=== PATIENT | female | born 1975 | race Caucasian/White ===

== ENCOUNTER → 2018-03-15 | Outpatient (REF) ==
[~2018-03-15] MED LIST: AMOX500T10 PO; LEVO-3 PO; LEVO137T23 PO; LEVO150T78 PO
[2018-03-15 13:47] LABS: LDL CHOLESTEROL 100 mg/dl
== END ==
DX: Z02.9 Encounter for administrative examinations, unspecified (principal)

== ENCOUNTER → 2019-01-23 | Outpatient (REF) ==
[2019-01-23 18:38] LABS: LDL CHOLESTEROL 93 mg/dl
== END ==
DX: Z02.9 Encounter for administrative examinations, unspecified (principal)

== ENCOUNTER → 2019-01-28 | Outpatient (CLI) | payer OTHER ==
[~2019-01-28] MED LIST changes: +OMEP40CA48 PO
--- NOTE | 2019-01-28 14:45 | RADIOLOGY IMAGING REPORT ---
FACILITY: [facility] PATIENT NAME: Jana Bashir : 1975 MR: [id number] V: [id number] EXAM DATE: ORDERING PHYSICIAN: YOLIS SNIDER TECHNOLOGIST: Location: [facility] [place] Patient: Jana Bashir : 1975 Visit/Account:[id number] Date of Sevice: 01/28/2019 THYROID HISTORY: enlarged thryoid - hoarness COMPARISON: None. FINDINGS: SIZE: Normal. Right lobe: 4.35 x 0.87 x 1.39 cm Left lobe: 3.62 x 1.06 x 1.43 cm Isthmus: 1.9 mm PARENCHYMA: Homogeneous. NODULES: Right lobe: * In the mid right lobe there is a 1.1 x 0.6 x 0.6 cm slightly heterogeneous lobular solid mass. * In the inferior right lobe there is a well-circumscribed homogeneous 5 mm solid mass Left lobe: * In the superior pole there is a 4 mm cystic nodule * In the inferior pole there is a complex 1.2 x 0.6 x 0.8 cm nodule Isthmus: * None discrete. VASCULARITY: Within normal limits. ADDITIONAL FINDINGS: None. IMPRESSION: There is a 1.1 cm heterogeneous nodule in the mid right lobe for which ultrasound-guided fine-needle aspiration is recommended In the inferior pole on the left there is a complex 1.2 cm nodule for which ultrasound-guided fine-ne edle aspiration is recommended REFERENCE: 2015 [place] [employer] Management Guidelines for Adult Patients with Thyroid Nodules and D ifferentiated Thyroid Cancer: The [place] [employer] Guidelines Task Force on Thyroid Nodul es and Differentiated Thyroid Cancer. SONOGRAPHIC PATTERNS: * Benign: Purely cystic nodules (no solid component); estimated risk of malignancy <1 percent; no bi opsy recommended. * Very Low Suspicion: Spongiform or partially cystic nodules without any of the sonographic features described in low, intermediate, or high suspicion patterns; estimated risk of malignancy <3 percent; consider FNA at > 2 cm (Observation without FNA is also a reasonable option). * Low Suspicion: Isoechoic or hyperechoic solid nodule, or partially cystic nodule with eccentric so lid areas, without microcalcification, irregular margin or ETE (extra-thyroidal extension), or taller than wide shape; estimated risk of malignancy 5-10 percent; recommend FNA at >1.5 cm. * Intermediate Suspicion: Hypoechoic solid nodule with smooth margins without microcalcifications, E TE (extra-thyroidal extension), or taller than wide shape; estimated risk of malignancy 10-20 percent ; recommend FNA at > 1 cm. * High Suspicion: Solid hypoechoic nodule or solid hypoechoic component of a partially cystic nodule with one or more of the following features: irregular margins (infiltrative, microlobulated), microc alcifications, taller than wide shape, rim calcifications with small extrusive soft tissue component, evidence of ETE (extra-thyroidal extension); estimated risk of malignancy >70-90 percent; recommend FNA at > 1 cm. NOTES: * Although a sonographically suspicious subcentimeter thyroid nodule without evidence of extrathyroi mariana extension or sonographically suspicious lymph nodes may be observed with close sonographic follow -up rather than pursuing immediate FNA, patient age and preference may modify decision-making. A > 50% interval increase in nodule volume and/or development of new suspicious sonographic features are felt to be a valid reasons for potential re-aspiration of a nodule previously shown to have benig n FNA cytology. Report Dictated By: Jessie Harden MD at 01/28/2019 2:38 PM Report E-Signed By: Jessie Harden MD at 01/28/2019 2:41 PM WSN:[email or web address]
== END ==
LOC: RAD 11:28
PROVIDERS: ATTEND Nurse Practitioner Family
DX: E04.2 Nontoxic multinodular goiter (principal)
CPT/HCPCS: 76536

== ENCOUNTER → 2019-02-04 | Outpatient (CLI) | payer OTHER ==
[2019-02-04 08:30] LABS: INR 0.96
== END ==
LOC: LAB 08:02
PROVIDERS: ATTEND Nurse Practitioner Family
DX: E04.1 Nontoxic single thyroid nodule (principal)
CPT/HCPCS: 36415; 85049; 85610; 85730

== ENCOUNTER → 2019-02-04 | Outpatient (CLI) | payer OTHER ==
--- NOTE | 2019-02-04 17:23 | RADIOLOGY IMAGING REPORT ---
FACILITY: [facility] [place] PATIENT NAME: Jana Bashir : 1975 MR: [id number] V: [id number] EXAM DATE: ORDERING PHYSICIAN: YOLIS SNIDER TECHNOLOGIST: Location: [facility] Patient: Jana Bashir : 1975 Visit/Account:[id number] Date of Sevice: 02/04/2019 Exam type: US BIOPSY LOC/INJ THYROID History: thryoid nodule Comparison: Thyroid ultrasound January 28, 2019. Findings: Informed consent was obtained including potential risks and complications such as bleeding and infect ion. The patient's neck was prepped and draped usual sterile fashion. Attention was first directed towards the left lobe hypoechoic nodule. Local anesthesia was Destini 1% lidocaine. Four 25-gauge F NA biopsies were obtained through this left lobe nodule. Numerous images of the procedure were obtai madalyn however these were not submitted to the PACS system. Attention was then directed towards the rig ht thyroid nodule. This actually appear to represent two subcentimeter contiguous nodules therefore was not biopsied today. A six-month follow-up thyroid ultrasound is recommended IMPRESSION: 1. Successful FNA biopsy of the hypoechoic left thyroid nodule Six-month thyroid ultrasound recommended to evaluate the two contiguous subcentimeter right thyroid n odules. Report Dictated By: Jessie Harden MD at 02/04/2019 5:16 PM Report E-Signed By: Jessie Harden MD at 02/04/2019 5:19 PM WSN:[email or web address]
== END ==
LOC: US 00:46
PROVIDERS: ATTEND Nurse Practitioner Family
DX: E04.1 Nontoxic single thyroid nodule (principal)
CPT/HCPCS: 10005; 76942; 88104; 88172